=== PATIENT | female | born 1990 | race African-American/Black ===

== ENCOUNTER 2021-09-11 05:08 | Inpatient (IN) | payer OTHER ==
[~2021-09-11] VITALS: Ht 167.6 cm; Wt 70.8 kg
--- NOTE | 2021-09-11 05:40 | NUR ---
PATIENT BIBSELF C/O ELEVATED HEART RATE AT HOME. PATIENT IS A/O X 4, RR EVEN, NO SOB NOTED. PATIENT CONNECTED TO [employer] MONITOR AND POX.
[2021-09-11] MEDS ORDERED: LORAZEPAM INJ 2 MG/ML VIAL ONE (06:29)
[2021-09-11] MEDS ORDERED: LORAZEPAM INJ 2 MG/ML VIAL IV ONE (06:30)
[2021-09-11] MEDS ORDERED: IV NS 0.9% 1,000 ML IV ONE (06:30)
--- NOTE | 2021-09-11 06:54 | NUR ---
URINE AND BLOOD SAMPLE COLLECTED AND SENT TO LAB
[2021-09-11 06:57] LABS: BASOPHILS % (AUTO) 0.3 % (0.0-2.0); HEMATOCRIT 36 % (33-45); HEMOGLOBIN 12.1 g/dL (11.5-14.8); LYMPHOCYTES # (AUTO) 1.4 K/uL (0.8-4.8); LYMPHOCYTES % (AUTO) 13.3 % (20.0-44.0); MEAN CORPUSCULAR HGB CONC 34 g/dl (31.0-36.0); MEAN CORPUSCULAR VOLUME 90 fL (82-100); MONOCYTES % (AUTO) 9.5 % (2.0-12.0); NEUTROPHILS # (AUTO) 8.2 K/uL (1.8-8.9); NEUTROPHILS % (AUTO) 76.9 % (43.0-81.0); PLATELET COUNT (AUTO) 339 K/uL (150-450); RED BLOOD CELL COUNT(AUTO) 4.04 MIL/uL (4.0-5.2); WHITE BLOOD COUNT (AUTO) 10.7 K/uL (4.3-11.0)
[2021-09-11 07:07] LABS: ALCOHOL, BLOOD < 3 mg/dL (0-0); CALCIUM, SERUM 8.8 mg/dL (8.5-10.1); CARBON DIOXIDE 23 mmol/L (21-32); CHLORIDE 103 mmol/L (98-107); CREATININE 0.9 mg/dL (0.6-1.3); GLUCOSE 113 mg/dL (74-106); MAGNESIUM 1.9 mg/dL (1.8-2.4); POTASSIUM 2.9 mmol/L (3.5-5.1); SODIUM SERUM 140 mmol/L (136-145); UREA NITROGEN, BLOOD 6 mg/dL (7-18)
[2021-09-11] MEDS ORDERED: POTASSIUM CHLORIDE 20 MEQ TAB.PRT.SR PO ONE ×2 (07:37→08:00)
[2021-09-11] MEDS ORDERED: AZAT50TA18 PO (08:24)
[2021-09-11] MEDS ORDERED: DULO30CA52 PO (08:24)
[2021-09-11] MEDS ORDERED: LITH300C4 PO (08:24)
[2021-09-11] MEDS ORDERED: LITH150C PO (08:24)
--- NOTE | 2021-09-11 08:30 | NUR ---
MOVE SHEET SUBMITTED.
--- NOTE | 2021-09-11 09:30 | NUR ---
CHECKED WITH ADMITTING AWAITING CALL BACK.
--- NOTE | 2021-09-11 11:16 | NUR ---
[facility] CALLED [employer]INTENA[employer]CE [employer].
--- NOTE | 2021-09-11 12:21 | NUR ---
FOOD TRAY PROVIDED
[2021-09-11] MEDS ORDERED: ONDANSETRON HCL/PF 4 MG/2 ML VIAL IVP PRN (12:30)
[2021-09-11] MEDS ORDERED: ACETAMINOPHEN 325 MG TABLET PO PRN (12:30)
[2021-09-11] MEDS ORDERED: MAG HYDROX/AL HYDROX/SIMETH 30 ML UDC PO PRN (12:30)
[2021-09-11] MEDS ORDERED: IV NS 0.9% 1,000 ML IV PRN (12:30)
[2021-09-11] MEDS ORDERED: MAGNESIUM HYDROXIDE 30 ML UDC PO PRN (12:30)
--- NOTE | 2021-09-11 14:19 | NUR ---
ULTRASOUND AT BEDSIDE
[2021-09-11] MEDS ORDERED: DULOXETINE HCL 30 MG CAPSULE.DR PO SCH (17:00)
[2021-09-11] MEDS ORDERED: METO25TA6 PO (17:54)
--- NOTE | 2021-09-11 17:54 | NUR ---
PATIENT WAS ADVISED TO STAY UNITL 1999 TO SPEAK TO ADMITTING NURSE IN REGARDS TO HER DISCHARGE . PATIENT DECIDED TO LEAVE AGAINST MEDICAL ADVICE AND SIGNED PAPERWORK BECAUSE SHE NO LONGER WANTED TO WAIT.
[2021-09-11 17:56] VITALS: BP 113/86
[2021-09-11] MEDS ORDERED: LITHIUM CARBONATE (300 MG CAP) 300 MG CAPSULE PO SCH (18:00)
[2021-09-12] MEDS ORDERED: AZATHIOPRINE 50 MG TABLET PO SCH (09:00)
[2021-09-12] MEDS ORDERED: LITHIUM CARBONATE 150 MG CAPSULE PO SCH ×2 (09:00→18:00)
== END 2021-09-11 17:55 | disposition home or self-care (01) | DRG 309 ==
LOC: ER 05:20 → TRANSITION 17:53
PROVIDERS: ADMIT Internal Medicine; ATTEND Internal Medicine
DX: I49.9 Cardiac arrhythmia, unspecified (principal); Q79.60 Ehlers-Danlos syndrome, unspecified; K50.90 Crohn's disease, unspecified, without complications; I47.1 Supraventricular tachycardia; F41.9 Anxiety disorder, unspecified; M79.7 Fibromyalgia; Z72.89 Other problems related to lifestyle; E87.6 Hypokalemia; Z20.822 Contact with and (suspected) exposure to COVID-19
CPT/HCPCS: 36415; 80048-TC; 83735-TC; 84484-TC; 84703-TC; 85025-TC; 87081-TC; 93307-TC; C9803; G0378; G0480; J2060; J2405; J7030; J7500